=== PATIENT | female | born 2000 | race Two or more races ===

== ENCOUNTER 2023-08-18 11:22 | Emergency (ER) | payer OTHER ==
[~2023-08-18] VITALS: Ht 167.6 cm; Wt 113.4 kg
[2023-08-18 12:00] LABS: HEMATOCRIT 38.5 % (36.0-45.00); HEMOGLOBIN 13.5 g/dL (12.0-15.00); MEAN CELL VOLUME 87.9 fL (80.00-100.00); MEAN CORPUSCULAR HEMOGLOBIN 30.7 pg (27.00-32.0); PLATELET COUNT 261 K/uL (150-450); RED BLOOD COUNT 4.38 M/uL (4.00-6.00)
[2023-08-18 12:09] LABS: PH,URINE 6.5 (5.0-8.0); URINE APPEARANCE Cloudy; URINE BILIRRUBIN Negative (NEGATIVE); URINE BLOOD Moderate; URINE COLOR Yellow; URINE GLUCOSE Negative (NEGATIVE); URINE LEUKOCYTE Small; URINE NITRATE Negative; URINE PROTEIN Negative (NEGATIVE)
[2023-08-18 12:10] LABS: URINE BACTERIA 318.7 uL (0.0-1933); URINE EPITHELIAL CELLS 35.8 uL (0.0-38.8); URINE RBC 6.3 uL (0.0-20.8); URINE WBC 54.5 uL (0.0-23.2)
[2023-08-18 13:17] LABS: CALCIUM 8.8 mg/dL (8.5-10.1); CREATININE SERUM 0.7 mg/dL (0.55-1.02); GFR 102.8; POTASSIUM 4.06 mEq/L (3.5-5.1)
== END 2023-08-18 14:06 | disposition home or self-care (01) ==
LOC: ER 11:23
PROVIDERS: Emergency Medicine
DX: O20.8 Other hemorrhage in early pregnancy (principal); Z3A.01 Less than 8 weeks gestation of pregnancy; N93.9 Abnormal uterine and vaginal bleeding, unspecified

== ENCOUNTER 2025-02-11 17:47 | Emergency (ER) | payer OTHER ==
[~2025-02-11] VITALS: Ht 162.6 cm; Wt 110.7 kg
[2025-02-11] MEDS ORDERED: PRENATAL + DHA1 EAC1 PO (18:14)
[2025-02-11 19:54] LABS: BASO % 0.3 % (0.1-1.2); EOS # 0.03 (0.04-0.54); EOS % 0.3 % (0.7-7.0); LYMPH # 2.08 (1.18-3.74); LYMPH % 18.9 % (19.3-53.1); MEAN PLATELET VOLUME 11.50 fl (9.4-12.4); MONO # 0.77 (0.24-0.82); MONO % 7.0 % (4.7-12.5); NEUT # 8.06 (1.56-6.13); NEUT % 73.1 % (34.0-71.1); RED CELL DISTRIBUTION WIDTH 13.1 % (11.6-14.4)
== END 2025-02-11 21:45 | disposition home or self-care (01) ==
LOC: ER 17:47
PROVIDERS: General Practice
DX: O20.8 Other hemorrhage in early pregnancy (principal); Z3A.08 8 weeks gestation of pregnancy

== ENCOUNTER → 2025-05-09 14:23 | Outpatient (CLI) | payer OTHER ==
[~2025-05-09 14:23] MED LIST: PRENATAL + DHA1 EAC1 PO
== END | disposition home or self-care (01) ==
LOC: PRENATAL 14:23
PROVIDERS: ATTEND Obstetrics & Gynecology Maternal & Fetal Medicine
DX: O44.02 Complete placenta previa NOS or without hemorrhage, second trimester (principal); O99.212 Obesity complicating pregnancy, second trimester; O43.92 Unspecified placental disorder, second trimester; O26.872 Cervical shortening, second trimester; Z3A.21 21 weeks gestation of pregnancy

== ENCOUNTER → 2025-05-27 07:27 | Outpatient (CLI) | payer OTHER | END | disposition home or self-care (01) | LOC: PRENATAL 07:27 | PROVIDERS: ATTEND Obstetrics & Gynecology Maternal & Fetal Medicine | DX: O26.842 Uterine size-date discrepancy, second trimester (principal); O99.212 Obesity complicating pregnancy, second trimester; O43.92 Unspecified placental disorder, second trimester; O26.872 Cervical shortening, second trimester; Z3A.23 23 weeks gestation of pregnancy ==